=== PATIENT | female | born 1945 | race Caucasian/White ===

== ENCOUNTER 2018-02-13 10:27 | Emergency (ER) | payer OTHER ==
[~2018-02-13] VITALS: Ht 149.9 cm; Wt 59.0 kg
[2018-02-13 11:30] VITALS: BP 145/89
[2018-02-13] MEDS ORDERED: KETOROLAC TROMETH 60MG/2ML VIAL IM ONE (11:45)
== END 2018-02-13 12:49 | disposition left against medical advice (07) ==
LOC: ER 10:27
DX: S20.212A Contusion of left front wall of thorax, initial encounter (principal); M25.551 Pain in right hip; E11.9 Type 2 diabetes mellitus without complications; I10 Essential (primary) hypertension; Z95.0 Presence of cardiac pacemaker; X58.XXXA Exposure to other specified factors, initial encounter; Y93.89 Activity, other specified; Y92.89 Other specified places as the place of occurrence of the external cause; Y99.8 Other external cause status
CPT/HCPCS: 71101; 73502; 96372; 99284; J1885

== ENCOUNTER 2021-09-22 14:57 | Inpatient (IN) | payer OTHER ==
[~2021-09-22] VITALS: Ht 147.3 cm; Wt 58.6 kg
[2021-09-22] MEDS ORDERED: SODIUM CHLORIDE 0.9% 1,000 ML IV ONE (16:00)
[2021-09-22] MEDS ORDERED: ASPirin 81 mg TAB PO ONE (16:00)
[2021-09-22 16:41] LABS: Basophils # (auto) 0 10 ^3/uL (0-0.2); Eosinophils # (auto) 0 10 ^3/uL (0-0.8); Hematocrit 37.8 % (36.0-46.0); Hemoglobin 12.5 g/dL (12.2-16.2); Mean Corpuscular Volume 106.9 fL (80.0-100.0); Monocytes # (auto) 0.3 10 ^3/uL (0-1.3); Monocytes % (auto) 4.8 % (0.0-12.0); Neutrophils # (auto) 4.9 10 ^3/uL (1.6-8.6); Red Blood Cells 3.53 10^6/uL (4.0-5.20); White Blood Cell 5.7 10^3/uL (4.4-10.8)
[2021-09-22 16:44] LABS: Basophils % (auto) 0.4 % (0.0-2.0); Lymphocytes # (auto) 0.6 10 ^3/uL (0.4-5.4); Lymphocytes % (auto) 9.7 % (10.0-50.0); Mean Corpuscular Hemoglobin 35.3 pg (28.0-32.0); Neutrophils % (auto) 85.1 % (37.0-80.0); Nucleated Red Blood Cells % 0.6 %
[2021-09-22 17:01] LABS: INR 0.95 (0.9-1.15); Partial Thromboplastin Time 21.1 sec (23.6-33.0)
[2021-09-22] MEDS ORDERED: DexAMETHasone SOD PHOS 10MG/1ML VIAL INJ IV ONE (17:15)
[2021-09-22] MEDS ORDERED: cefTRIAXone 1GM/50ML D5W 50 ML IV ONE (17:15)
[2021-09-22] MEDS ORDERED: AZITHROMYCIN 500MG/ 250ML 250 ML IV ONE (17:15)
[2021-09-22] MEDS ORDERED: CHOLECALCIFEROL (VITD3) 2,000 UNIT CAP/TAB PO ONE (17:15)
[2021-09-22] MEDS ORDERED: ASCORBIC ACID 500 MG TAB PO ONE (17:15)
[2021-09-22] MEDS ORDERED: ZINC SULFATE 220mg CAP or TAB PO ONE (17:15)
[2021-09-22 17:17] LABS: Albumin 2.6 g/dL (3.4-5.0); Calcium 8.7 mg/dL (8.5-10.1); Magnesium 3.1 mg/dL (1.6-2.6); Potassium 3.8 mmol/L (3.5-5.1)
[2021-09-22 17:25] LABS: BUN/Creatinine Ratio 33.9; Bilirubin, Total 0.2 mg/dL (0.2-1.0); Total Protein 7.4 g/dL (6.4-8.2)
[2021-09-22] MEDS ORDERED: NITROGLYCERIN 0.4 MG SL TAB SL PRN ×2 (19:30→20:00)
[2021-09-22] MEDS ORDERED: MORPHINE SULFATE INJECTION 2 MG/ML SYRG IV PRN ×2 (19:30→20:00)
[2021-09-22] MEDS ORDERED: FAMOTIDINE (10MG/ML) 2ML VL IV ONE (19:45)
[2021-09-22] MEDS ORDERED: REMDESIVIR PER PHARMACY 0 ML IV SCH (19:45)
[2021-09-22] MEDS ORDERED: ACETAMINOPHEN 500 MG TAB PO PRN (19:45)
[2021-09-22] MEDS ORDERED: DOCUSATE SOD 100 MG CAP PO PRN (20:00)
[2021-09-22] MEDS ORDERED: DEXTROSE (50%) 50ML SYRG IV PRN (20:00)
[2021-09-22] MEDS ORDERED: METOPROLOL SUCCINATE XL 50 MG TAB PO ONE (20:15)
[2021-09-22] MEDS ORDERED: ALBUMIN 25% 100 ML IV ONE (20:15)
[2021-09-22] MEDS: BUDESONIDE (INHALATION) 180 MCG IH IN SCH (20:49)
[2021-09-22] MEDS: ALBUTEROL SULF HFA 90MCG INH 200DOSE IN PRN (20:49)
[2021-09-22] MEDS ORDERED: REMDESIVIR 200 MG in NS 210ml LOADING DOSE ADULT IV ONE (21:00)
[2021-09-22] MEDS: ATORVASTATIN 20 MG TAB PO SCH (21:52)
[2021-09-22] MEDS: POTASSIUM CHL 20 Meq TABLET PO SCH (21:52)
[2021-09-22] MEDS: InsuLIN REG 1unit/0.01ml Soln (100units/ml) SC SCH (21:52)
[2021-09-22] MEDS: ACCU-CHEK COMFORT CURVE STRIP VI SCH (21:52)
[2021-09-22] MEDS ORDERED: ENOXAPARIN SOD 40 MG/0.4 ML SYRINGE SC SCH (22:00)
[2021-09-23] VITALS (7 sets, daily range): BP systolic 134–158; BP diastolic 49–92
[2021-09-23] MEDS: DOXYCYCLINE 100MG/250ML 250 ML IV SCH ×2 (01:00→11:02)
[2021-09-23] MEDS ORDERED: LISI20TA28 PO (02:28)
[2021-09-23] MEDS ORDERED: MORP15TA PO (02:28)
[2021-09-23] MEDS ORDERED: METO25TA5 PO (02:28)
[2021-09-23] MEDS: MORPHINE SULFATE INJECTION 2 MG/ML SYRG IV PRN ×4 (02:51→20:10)
[2021-09-23] MEDS ORDERED: ALBUMIN 25% 100 ML IV SCH (04:00)
[2021-09-23] MEDS: FUROSEMIDE 20 MG/2 ML VIAL IV SCH ×2 (05:34→18:44)
[2021-09-23] MEDS: InsuLIN REG 1unit/0.01ml Soln (100units/ml) SC SCH ×2 (06:26→11:30)
[2021-09-23] MEDS: ACCU-CHEK COMFORT CURVE STRIP VI SCH ×2 (06:26→11:50)
[2021-09-23] MEDS: BUDESONIDE (INHALATION) 180 MCG IH IN SCH ×2 (09:13→22:12)
[2021-09-23] MEDS: ALBUTEROL SULF HFA 90MCG INH 200DOSE IN PRN ×2 (09:13→22:14)
[2021-09-23] MEDS ORDERED: OPTISON 3ml Vial for INJ IV ONE (10:10)
[2021-09-23] MEDS: DexAMETHasone SOD PHOS 10MG/1ML VIAL INJ IV SCH (11:01)
[2021-09-23] MEDS: ASPirin 81 mg TAB PO SCH (11:02)
[2021-09-23] MEDS: POTASSIUM CHL 20 Meq TABLET PO SCH ×2 (11:03→21:12)
[2021-09-23] MEDS: IVERMECTIN 3 MG TAB PO SCH (11:03)
[2021-09-23] MEDS: ASCORBIC ACID 1,000 MG TAB PO SCH (11:03)
[2021-09-23] MEDS: CHOLECALCIFEROL (VITD3) 2,000 UNIT CAP/TAB PO SCH (11:03)
[2021-09-23] MEDS: LORazepam 0.5 MG TAB PO PRN ×2 (11:04→21:14)
[2021-09-23] MEDS: HYDROcodone-ACET 5/325MG TAB PO PRN (11:05)
[2021-09-23 12:10] LABS: INR 0.97 (0.9-1.15); Potassium 3.9 mmol/L (3.5-5.1)
[2021-09-23 12:13] LABS: Basophils # (auto) 0 10 ^3/uL (0-0.2); Basophils % (auto) 0.1 % (0.0-2.0); Eosinophils # (auto) 0 10 ^3/uL (0-0.8); Hemoglobin 11.8 g/dL (12.2-16.2); Lymphocytes # (auto) 0.7 10 ^3/uL (0.4-5.4); Monocytes # (auto) 0.3 10 ^3/uL (0-1.3)
[2021-09-23 12:15] LABS: Hematocrit 35.2 % (36.0-46.0); Lymphocytes % (auto) 10.6 % (10.0-50.0); Mean Corpuscular Hemoglobin 35.7 pg (28.0-32.0); Mean Corpuscular Hgb Conc. 33.6 g/dL (32.0-36.0); Mean Corpuscular Volume 106.2 fL (80.0-100.0); Monocytes % (auto) 4.6 % (0.0-12.0); Neutrophils # (auto) 5.8 10 ^3/uL (1.6-8.6); Neutrophils % (auto) 84.7 % (37.0-80.0); Nucleated Red Blood Cells % 0.4 %; Red Blood Cells 3.31 10^6/uL (4.0-5.20); White Blood Cell 6.8 10^3/uL (4.4-10.8)
[2021-09-23 12:27] LABS: Albumin 3.5 g/dL (3.4-5.0); BUN/Creatinine Ratio 31.4; Bilirubin, Total 0.4 mg/dL (0.2-1.0); Calcium 9.1 mg/dL (8.5-10.1); Magnesium 2.3 mg/dL (1.6-2.6); Phosphorus 2.1 mg/dL (2.5-4.90); Total Protein 7.8 g/dL (6.4-8.2); Uric Acid 6.8 mg/dL (2.6-6.0)
[2021-09-23] MEDS ORDERED: REMDESIVIR 100mg 100 MG in SODIUM CHL 0.9% 230 ML IV SCH (15:00)
[2021-09-23] MEDS: ENOXAPARIN SOD 40 MG/0.4 ML SYRINGE SC SCH (21:12)
[2021-09-23] MEDS: ATORVASTATIN 20 MG TAB PO SCH (21:12)
[2021-09-23] MEDS: DOXYCYCLINE 100 MG TAB/CAP PO SCH (21:12)
[2021-09-23] MEDS: METOPROLOL SUCCINATE XL 50 MG TAB PO SCH (21:13)
[2021-09-23] MEDS ORDERED: FAMOTIDINE (10MG/ML) 2ML VL IV SCH (22:00)
[2021-09-24] MEDS: HYDROcodone-ACET 5/325MG TAB PO PRN ×2 (00:31→10:46)
[2021-09-24] MEDS: MORPHINE SULFATE INJECTION 2 MG/ML SYRG IV PRN ×2 (01:38→22:49)
[2021-09-24 04:36] VITALS: BP 115/58
[2021-09-24] MEDS: BUDESONIDE (INHALATION) 180 MCG IH IN SCH ×2 (05:58→22:10)
[2021-09-24] MEDS: ALBUTEROL SULF HFA 90MCG INH 200DOSE IN PRN ×2 (05:58→23:27)
[2021-09-24] MEDS: FUROSEMIDE 20 MG/2 ML VIAL IV SCH ×2 (06:50→18:00)
[2021-09-24 09:00] VITALS: BP 153/58
[2021-09-24] MEDS: DexAMETHasone SOD PHOS 10MG/1ML VIAL INJ IV SCH (10:44)
[2021-09-24] MEDS: LORazepam 0.5 MG TAB PO PRN (10:44)
[2021-09-24] MEDS: ENOXAPARIN SOD 40 MG/0.4 ML SYRINGE SC SCH ×2 (10:44→22:33)
[2021-09-24] MEDS: ASPirin 81 mg TAB PO SCH (10:44)
[2021-09-24] MEDS: ASCORBIC ACID 1,000 MG TAB PO SCH (10:45)
[2021-09-24] MEDS: DOXYCYCLINE 100 MG TAB/CAP PO SCH ×2 (10:45→22:32)
[2021-09-24] MEDS: IVERMECTIN 3 MG TAB PO SCH (10:45)
[2021-09-24] MEDS: POTASSIUM CHL 20 Meq TABLET PO SCH ×2 (10:45→22:31)
[2021-09-24] MEDS: CHOLECALCIFEROL (VITD3) 2,000 UNIT CAP/TAB PO SCH (10:45)
[2021-09-24 11:46] LABS: Urine Bacteria NONE SEEN /hpf (None Seen); Urine Blood Negative /uL (Negative); Urine Specific Gravity 1.017 (1.001-1.035); Urine WBC 6 /hpf (0 - 5)
[2021-09-24 12:23] LABS: Alcohol, Urine < 3.0 mg/dL (0-10); Barbiturate Scree,Urine NEGATIVE (NEGATIVE); Benzodiazephine Screen, Urine NEGATIVE (NEGATIVE); Cannabinoid Screen, Urine NEGATIVE (NEGATIVE)
[2021-09-24 12:33] LABS: Amphetamine Screen, Urine NEGATIVE (NEGATIVE); Cocaine Screen, Urine NEGATIVE (NEGATIVE); Opiate Scree,Urine POSITIVE (NEGATIVE); Phencyclidine Screen, Urine NEGATIVE (NEGATIVE)
[2021-09-24 13:00] VITALS: BP 152/65
[2021-09-24 17:00] VITALS: BP 148/67
[2021-09-24 22:00] VITALS: BP 138/66
[2021-09-24] MEDS: ATORVASTATIN 20 MG TAB PO SCH (22:32)
[2021-09-24] MEDS: METOPROLOL SUCCINATE XL 50 MG TAB PO SCH (22:32)
[2021-09-25] MEDS: MORPHINE SULFATE INJECTION 2 MG/ML SYRG IV PRN ×4 (04:16→20:55)
[2021-09-25 05:00] VITALS: BP 162/73
[2021-09-25] MEDS: ALBUTEROL SULF HFA 90MCG INH 200DOSE IN PRN ×2 (06:14→19:55)
[2021-09-25] MEDS: BUDESONIDE (INHALATION) 180 MCG IH IN SCH ×2 (06:14→19:13)
[2021-09-25 06:26] LABS: Mean Corpuscular Volume 106.6 fL (80.0-100.0)
[2021-09-25 06:28] LABS: Potassium 4.6 mmol/L (3.5-5.1)
[2021-09-25 06:29] LABS: Hematocrit 36.2 % (36.0-46.0); Hemoglobin 12.1 g/dL (12.2-16.2); Mean Corpuscular Hemoglobin 35.6 pg (28.0-32.0); Mean Corpuscular Hgb Conc. 33.4 g/dL (32.0-36.0); Red Blood Cells 3.39 10^6/uL (4.0-5.20); White Blood Cell 6.6 10^3/uL (4.4-10.8)
[2021-09-25 06:48] LABS: Basophils % (manual) 0 (0.0-2.0); Blast Cells 0; Eosinophils % (manual) 0 (0-7); Promyelocytes % 0; Reactive Lymphocytes 0
[2021-09-25 06:58] LABS: BUN/Creatinine Ratio 55.4; CRP High Sensitivity 1.53 mg/dL (< 0.3); Calcium 9.6 mg/dL (8.5-10.1)
[2021-09-25] MEDS: HYDROcodone-ACET 5/325MG TAB PO PRN ×3 (08:09→22:47)
[2021-09-25 09:22] VITALS: BP 168/66
[2021-09-25] MEDS: hydrALAZINE HCL 20 MG/ML VL IV PRN ×2 (09:53→20:55)
[2021-09-25] MEDS: IVERMECTIN 3 MG TAB PO SCH (09:53)
[2021-09-25] MEDS: ENOXAPARIN SOD 40 MG/0.4 ML SYRINGE SC SCH ×2 (09:53→20:54)
[2021-09-25] MEDS: DexAMETHasone SOD PHOS 10MG/1ML VIAL INJ IV SCH (09:53)
[2021-09-25] MEDS: ASPirin 81 mg TAB PO SCH (09:54)
[2021-09-25] MEDS: DOXYCYCLINE 100 MG TAB/CAP PO SCH ×2 (09:54→20:54)
[2021-09-25] MEDS: POTASSIUM CHL 20 Meq TABLET PO SCH (09:54)
[2021-09-25] MEDS: ASCORBIC ACID 1,000 MG TAB PO SCH (09:54)
[2021-09-25] MEDS: CHOLECALCIFEROL (VITD3) 2,000 UNIT CAP/TAB PO SCH (09:54)
[2021-09-25 11:34] LABS: Band Neutrophils % (manual) 4; Lymphocytes % (manual) 5 (10.0-50.0); Metamyelocytes % 1; Monocytes % (manual) 7 (0-12); Myelocytes % 1
[2021-09-25 13:00] VITALS: BP 143/61
[2021-09-25 17:27] VITALS: BP 133/46
[2021-09-25 20:30] VITALS: BP 133/46
[2021-09-25] MEDS: METOPROLOL SUCCINATE XL 50 MG TAB PO SCH (20:54)
[2021-09-25] MEDS: ONDANSETRON HCL 4 MG/2 ML VIAL IV PRN (21:52)
[2021-09-25 22:00] VITALS: BP 164/76
[2021-09-25] MEDS: LORazepam 0.5 MG TAB PO PRN (22:04)
[2021-09-25] MEDS ORDERED: LISINOPRIL 20 MG TAB PO ONE (23:15)
[2021-09-26 05:00] VITALS: BP 150/67
[2021-09-26] MEDS: BUDESONIDE (INHALATION) 180 MCG IH IN SCH ×2 (06:01→18:20)
[2021-09-26] MEDS: ALBUTEROL SULF HFA 90MCG INH 200DOSE IN PRN ×2 (06:01→18:20)
[2021-09-26 06:20] LABS: Mean Corpuscular Hemoglobin 35.2 pg (28.0-32.0)
[2021-09-26 06:22] LABS: Hematocrit 37.9 % (36.0-46.0); Hemoglobin 12.6 g/dL (12.2-16.2); Mean Corpuscular Hgb Conc. 33.2 g/dL (32.0-36.0); Mean Corpuscular Volume 106.3 fL (80.0-100.0); Red Blood Cells 3.56 10^6/uL (4.0-5.20)
[2021-09-26 06:28] LABS: Basophils % (manual) 0 (0.0-2.0); Blast Cells 0; Eosinophils % (manual) 0 (0-7); Metamyelocytes % 0; Myelocytes % 0; Promyelocytes % 0; Reactive Lymphocytes 0
[2021-09-26 06:41] LABS: Albumin 3.2 g/dL (3.4-5.0); Potassium 3.5 mmol/L (3.5-5.1)
[2021-09-26 06:46] LABS: BUN/Creatinine Ratio 57.1; Bilirubin, Total 0.8 mg/dL (0.2-1.0); Total Protein 6.9 g/dL (6.4-8.2)
[2021-09-26 08:57] VITALS: BP 136/56
[2021-09-26] MEDS: DexAMETHasone SOD PHOS 10MG/1ML VIAL INJ IV SCH (09:47)
[2021-09-26] MEDS: CHOLECALCIFEROL (VITD3) 2,000 UNIT CAP/TAB PO SCH (09:48)
[2021-09-26] MEDS: ASPirin 81 mg TAB PO SCH (09:48)
[2021-09-26] MEDS: IVERMECTIN 3 MG TAB PO SCH (09:48)
[2021-09-26] MEDS: DOXYCYCLINE 100 MG TAB/CAP PO SCH ×2 (09:48→22:51)
[2021-09-26] MEDS: ASCORBIC ACID 1,000 MG TAB PO SCH (09:48)
[2021-09-26] MEDS: ENOXAPARIN SOD 40 MG/0.4 ML SYRINGE SC SCH ×2 (09:49→22:51)
[2021-09-26] MEDS: LISINOPRIL 20 MG TAB PO SCH (10:00)
[2021-09-26 11:22] LABS: BUN/Creatinine Ratio 57.1; Potassium 4.8 mmol/L (3.5-5.1)
[2021-09-26 12:03] LABS: Band Neutrophils % (manual) 3; Lymphocytes % (manual) 8 (10.0-50.0); Monocytes % (manual) 2 (0-12)
[2021-09-26 13:00] VITALS: BP 143/54
[2021-09-26 17:12] VITALS: BP 149/69
[2021-09-26] MEDS: Ensure HIGH Protein Chocolate 8oz Bottle PO SCH (18:00)
[2021-09-26] MEDS: MORPHINE SULFATE INJECTION 2 MG/ML SYRG IV PRN ×2 (18:44→22:52)
[2021-09-26 22:00] VITALS: BP 157/69
[2021-09-26] MEDS: METOPROLOL SUCCINATE XL 50 MG TAB PO SCH (22:52)
[2021-09-27] MEDS: MORPHINE SULFATE INJECTION 2 MG/ML SYRG IV PRN ×4 (03:00→22:27)
[2021-09-27 05:24] VITALS: BP 143/53
[2021-09-27] MEDS: BUDESONIDE (INHALATION) 180 MCG IH IN SCH ×2 (05:45→21:46)
[2021-09-27] MEDS: ALBUTEROL SULF HFA 90MCG INH 200DOSE IN PRN ×2 (05:45→22:53)
[2021-09-27] MEDS: Ensure HIGH Protein Chocolate 8oz Bottle PO SCH ×3 (08:00→18:18)
[2021-09-27] MEDS: LISINOPRIL 20 MG TAB PO SCH (10:00)
[2021-09-27] MEDS: DexAMETHasone SOD PHOS 10MG/1ML VIAL INJ IV SCH (10:37)
[2021-09-27] MEDS: IVERMECTIN 3 MG TAB PO SCH (10:38)
[2021-09-27] MEDS: DOXYCYCLINE 100 MG TAB/CAP PO SCH (10:38)
[2021-09-27] MEDS: ASPirin 81 mg TAB PO SCH (10:38)
[2021-09-27] MEDS: ASCORBIC ACID 1,000 MG TAB PO SCH (10:39)
[2021-09-27] MEDS: CHOLECALCIFEROL (VITD3) 2,000 UNIT CAP/TAB PO SCH (10:39)
[2021-09-27] MEDS: ENOXAPARIN SOD 40 MG/0.4 ML SYRINGE SC SCH ×2 (10:40→21:24)
[2021-09-27 13:00] VITALS: BP 156/74
[2021-09-27 17:00] VITALS: BP 150/71
[2021-09-27] MEDS: MORPHINE SULF 15mg ER tab PO SCH (21:23)
[2021-09-27] MEDS: METOPROLOL SUCCINATE XL 50 MG TAB PO SCH (21:27)
[2021-09-27 22:00] VITALS: BP 138/62
[2021-09-28] VITALS (7 sets, daily range): BP systolic 112–147; BP diastolic 53–64
[2021-09-28] MEDS: MORPHINE SULFATE INJECTION 2 MG/ML SYRG IV PRN (05:08)
[2021-09-28] MEDS: Ensure HIGH Protein Chocolate 8oz Bottle PO SCH ×3 (07:54→17:34)
[2021-09-28] MEDS: BUDESONIDE (INHALATION) 180 MCG IH IN SCH ×2 (08:37→21:53)
[2021-09-28] MEDS: ALBUTEROL SULF HFA 90MCG INH 200DOSE IN PRN (08:37)
[2021-09-28] MEDS: ASCORBIC ACID 1,000 MG TAB PO SCH (11:09)
[2021-09-28] MEDS: ASPirin 81 mg TAB PO SCH (11:09)
[2021-09-28] MEDS: DexAMETHasone SOD PHOS 10MG/1ML VIAL INJ IV SCH (11:09)
[2021-09-28] MEDS: LISINOPRIL 20 MG TAB PO SCH (11:10)
[2021-09-28] MEDS: CHOLECALCIFEROL (VITD3) 2,000 UNIT CAP/TAB PO SCH (11:10)
[2021-09-28] MEDS: MORPHINE SULF 15mg ER tab PO SCH ×2 (11:10→22:10)
[2021-09-28] MEDS: ENOXAPARIN SOD 40 MG/0.4 ML SYRINGE SC SCH ×2 (11:11→22:11)
[2021-09-28] MEDS: METOPROLOL SUCCINATE XL 50 MG TAB PO SCH (22:11)
[2021-09-29 05:00] VITALS: BP 103/51
[2021-09-29 07:21] LABS: Hematocrit 34.8 % (36.0-46.0); Hemoglobin 11.4 g/dL (12.2-16.2); Mean Corpuscular Hemoglobin 34.8 pg (28.0-32.0); Mean Corpuscular Hgb Conc. 32.7 g/dL (32.0-36.0); Mean Corpuscular Volume 106.3 fL (80.0-100.0); Red Blood Cells 3.27 10^6/uL (4.0-5.20); White Blood Cell 14.1 10^3/uL (4.4-10.8)
[2021-09-29 07:25] LABS: Basophils % (manual) 0 (0.0-2.0); Blast Cells 0; Eosinophils % (manual) 0 (0-7); Promyelocytes % 0; Reactive Lymphocytes 0
[2021-09-29 07:39] LABS: Potassium 4.6 mmol/L (3.5-5.1)
[2021-09-29] MEDS: Ensure HIGH Protein Chocolate 8oz Bottle PO SCH ×3 (07:44→18:13)
[2021-09-29 07:54] LABS: BUN/Creatinine Ratio 84.1; Calcium 10.3 mg/dL (8.5-10.1); Magnesium 3.6 mg/dL (1.6-2.6)
[2021-09-29 08:45] LABS: Band Neutrophils % (manual) 16; Lymphocytes % (manual) 6 (10.0-50.0); Metamyelocytes % 2; Monocytes % (manual) 3 (0-12); Myelocytes % 1
[2021-09-29 09:00] VITALS: BP 111/54
[2021-09-29] MEDS: ASPirin 81 mg TAB PO SCH (10:20)
[2021-09-29] MEDS: ASCORBIC ACID 1,000 MG TAB PO SCH (10:20)
[2021-09-29] MEDS: CHOLECALCIFEROL (VITD3) 2,000 UNIT CAP/TAB PO SCH (10:20)
[2021-09-29] MEDS: DexAMETHasone SOD PHOS 10MG/1ML VIAL INJ IV SCH (10:20)
[2021-09-29] MEDS: LISINOPRIL 20 MG TAB PO SCH (10:22)
[2021-09-29] MEDS: ENOXAPARIN SOD 40 MG/0.4 ML SYRINGE SC SCH ×2 (10:22→22:09)
[2021-09-29] MEDS: MORPHINE SULF 15mg ER tab PO SCH ×2 (10:23→22:10)
[2021-09-29 13:00] VITALS: BP 113/51
[2021-09-29 14:03] LABS: White Blood Cell 16.2 10^3/uL (4.4-10.8)
[2021-09-29 14:05] LABS: Hematocrit 37.2 % (36.0-46.0); Hemoglobin 12.2 g/dL (12.2-16.2); Mean Corpuscular Hemoglobin 35.3 pg (28.0-32.0); Mean Corpuscular Hgb Conc. 32.7 g/dL (32.0-36.0); Mean Corpuscular Volume 107.9 fL (80.0-100.0); Red Blood Cells 3.45 10^6/uL (4.0-5.20); Red Cell Distribution Width 16.2 % (11.8-14.3)
[2021-09-29 14:09] LABS: Basophils % (manual) 0 (0.0-2.0); Blast Cells 0; Eosinophils % (manual) 0 (0-7); Myelocytes % 0; Promyelocytes % 0; Reactive Lymphocytes 0
[2021-09-29 14:27] LABS: Calcium 10.5 mg/dL (8.5-10.1); Magnesium 3.4 mg/dL (1.6-2.6); Potassium 4.9 mmol/L (3.5-5.1)
[2021-09-29 14:35] LABS: CRP High Sensitivity 3.62 mg/dL (< 0.3)
[2021-09-29 14:53] LABS: Band Neutrophils % (manual) 8; Lymphocytes % (manual) 6 (10.0-50.0); Metamyelocytes % 1; Monocytes % (manual) 3 (0-12)
[2021-09-29] MEDS: BUDESONIDE (INHALATION) 180 MCG IH IN SCH ×2 (15:24→19:30)
[2021-09-29] MEDS: ALBUTEROL SULF HFA 90MCG INH 200DOSE IN PRN ×2 (15:24→20:59)
[2021-09-29 16:44] VITALS: BP 115/49
[2021-09-29 20:00] VITALS: BP 124/59
[2021-09-29 22:00] VITALS: BP 121/51
[2021-09-29] MEDS: METOPROLOL SUCCINATE XL 50 MG TAB PO SCH (22:09)
[2021-09-30 05:00] VITALS: BP 111/51
[2021-09-30] MEDS: Ensure HIGH Protein Chocolate 8oz Bottle PO SCH ×3 (07:34→18:42)
[2021-09-30 08:00] VITALS: BP 109/49
[2021-09-30 08:30] VITALS: BP 109/49
[2021-09-30] MEDS: DexAMETHasone SOD PHOS 10MG/1ML VIAL INJ IV SCH (09:22)
[2021-09-30] MEDS: MORPHINE SULF 15mg ER tab PO SCH ×2 (09:22→22:28)
[2021-09-30] MEDS: ASPirin 81 mg TAB PO SCH (09:22)
[2021-09-30] MEDS: ENOXAPARIN SOD 40 MG/0.4 ML SYRINGE SC SCH ×2 (09:23→22:29)
[2021-09-30] MEDS: IVERMECTIN 3 MG TAB PO SCH (09:23)
[2021-09-30] MEDS: CHOLECALCIFEROL (VITD3) 2,000 UNIT CAP/TAB PO SCH (09:23)
[2021-09-30] MEDS: LISINOPRIL 20 MG TAB PO SCH (09:23)
[2021-09-30] MEDS: ASCORBIC ACID 1,000 MG TAB PO SCH (09:23)
[2021-09-30] MEDS ORDERED: POLYETHYLENE GLYCOL 17 GM PWDR PO ONE (10:45)
[2021-09-30 12:50] VITALS: BP 104/38
[2021-09-30 16:33] VITALS: BP 109/50
[2021-09-30] MEDS: BUDESONIDE (INHALATION) 180 MCG IH IN SCH (18:58)
[2021-09-30] MEDS: ALBUTEROL SULF HFA 90MCG INH 200DOSE IN PRN (19:10)
[2021-09-30 22:00] VITALS: BP 115/50
[2021-09-30] MEDS: METOPROLOL SUCCINATE XL 50 MG TAB PO SCH (22:29)
[2021-10-01] VITALS (7 sets, daily range): BP systolic 108–139; BP diastolic 38–57
[2021-10-01] MEDS: Ensure HIGH Protein Chocolate 8oz Bottle PO SCH ×3 (08:00→18:00)
[2021-10-01] MEDS: DexAMETHasone SOD PHOS 10MG/1ML VIAL INJ IV SCH (09:22)
[2021-10-01] MEDS: ENOXAPARIN SOD 40 MG/0.4 ML SYRINGE SC SCH ×2 (09:22→21:49)
[2021-10-01] MEDS: MORPHINE SULF 15mg ER tab PO SCH ×2 (09:23→21:48)
[2021-10-01] MEDS: IVERMECTIN 3 MG TAB PO SCH (10:00)
[2021-10-01] MEDS: POLYETHYLENE GLYCOL 17 GM PWDR PO SCH (10:00)
[2021-10-01] MEDS: LISINOPRIL 20 MG TAB PO SCH (10:00)
[2021-10-01] MEDS: CHOLECALCIFEROL (VITD3) 2,000 UNIT CAP/TAB PO SCH (10:00)
[2021-10-01] MEDS: ASCORBIC ACID 1,000 MG TAB PO SCH (10:00)
[2021-10-01] MEDS: ASPirin 81 mg TAB PO SCH (10:00)
[2021-10-01] MEDS: ALBUTEROL SULF HFA 90MCG INH 200DOSE IN PRN ×2 (10:58→20:03)
[2021-10-01] MEDS: BUDESONIDE (INHALATION) 180 MCG IH IN SCH ×2 (10:58→18:40)
[2021-10-01] MEDS ORDERED: FUROSEMIDE 40 MG/4 ML VIAL IV SCH (13:00)
[2021-10-01] MEDS ORDERED: FLEET ENEMA(ADULT) 135 ML PR ONE (13:45)
[2021-10-01] MEDS: MORPHINE SULFATE INJECTION 2 MG/ML SYRG IV PRN (16:57)
[2021-10-01] MEDS: METOPROLOL SUCCINATE XL 50 MG TAB PO SCH (22:00)
[2021-10-02] VITALS (10 sets, daily range): BP systolic 103–129; BP diastolic 40–53
[2021-10-02] MEDS: LORazepam 0.5 MG TAB PO PRN ×2 (06:17→16:48)
[2021-10-02 06:55] LABS: Hematocrit 35.4 % (36.0-46.0); Hemoglobin 11.4 g/dL (12.2-16.2); Mean Corpuscular Hemoglobin 34.5 pg (28.0-32.0); Mean Corpuscular Hgb Conc. 32.2 g/dL (32.0-36.0); Mean Corpuscular Volume 107.3 fL (80.0-100.0); Red Cell Distribution Width 15.8 % (11.8-14.3); White Blood Cell 15.3 10^3/uL (4.4-10.8)
[2021-10-02 06:57] LABS: Basophils % (manual) 0 (0.0-2.0); Blast Cells 0; Promyelocytes % 0; Reactive Lymphocytes 0
[2021-10-02 07:00] LABS: BUN/Creatinine Ratio 56.9; Calcium 10.5 mg/dL (8.5-10.1); Magnesium 3.5 mg/dL (1.6-2.6); Potassium 4.8 mmol/L (3.5-5.1)
[2021-10-02] MEDS: MORPHINE SULFATE INJECTION 2 MG/ML SYRG IV PRN ×2 (07:44→22:03)
[2021-10-02] MEDS: ONDANSETRON HCL 4 MG/2 ML VIAL IV PRN (07:45)
[2021-10-02] MEDS: Ensure HIGH Protein Chocolate 8oz Bottle PO SCH ×3 (08:00→18:00)
[2021-10-02] MEDS: ASPirin 81 mg TAB PO SCH (10:00)
[2021-10-02] MEDS: BUDESONIDE (INHALATION) 180 MCG IH IN SCH (10:00)
[2021-10-02] MEDS: ASCORBIC ACID 1,000 MG TAB PO SCH (10:00)
[2021-10-02] MEDS: ENOXAPARIN SOD 40 MG/0.4 ML SYRINGE SC SCH ×2 (10:00→22:01)
[2021-10-02] MEDS: MORPHINE SULF 15mg ER tab PO SCH ×2 (10:00→22:00)
[2021-10-02] MEDS: IVERMECTIN 3 MG TAB PO SCH (10:00)
[2021-10-02] MEDS: CHOLECALCIFEROL (VITD3) 2,000 UNIT CAP/TAB PO SCH (10:00)
[2021-10-02] MEDS: POLYETHYLENE GLYCOL 17 GM PWDR PO SCH (10:00)
[2021-10-02 10:10] LABS: Band Neutrophils % (manual) 7; Eosinophils % (manual) 1 (0-7); Lymphocytes % (manual) 3 (10.0-50.0); Metamyelocytes % 1; Monocytes % (manual) 2 (0-12); Myelocytes % 1
[2021-10-02] MEDS: DexAMETHasone SOD PHOS 10MG/1ML VIAL INJ IV SCH (12:02)
[2021-10-02] MEDS: D5W/SOD CHLO 0.9% 1,000 ML IV SCH (15:45)
[2021-10-02] MEDS ORDERED: CLINIMIX PER PHARMACY 0 ML IV SCH (16:45)
[2021-10-02] MEDS: DOXYCYCLINE 100MG/250ML 250 ML IV SCH (18:00)
[2021-10-02] MEDS: AMINO ACID INFUSION IN D10W 1,000 ML IV NR ×2 (20:00→20:12)
[2021-10-02] MEDS: METOPROLOL SUCCINATE XL 50 MG TAB PO SCH (22:00)
[2021-10-02] MEDS: BUDESONIDE (INHALATION) 0.5 MG/2 ML NEB NEB SCH (22:07)
[2021-10-02] MEDS: ALBUTEROL SULF 2.5 MG/0.5ML(0.5%) NEB SOLN NEB PRN (22:07)
[2021-10-03] VITALS (7 sets, daily range): BP systolic 121–170; BP diastolic 54–65
[2021-10-03] MEDS ORDERED: DEXTROSE (50%) 50ML SYRG IV SCH
[2021-10-03] MEDS: InsuLIN REG 1unit/0.01ml Soln (100units/ml) SC SCH ×4 (00:38→18:00)
[2021-10-03] MEDS: MORPHINE SULFATE INJECTION 2 MG/ML SYRG IV PRN ×4 (04:33→14:33)
[2021-10-03] MEDS: ACCU-CHEK COMFORT CURVE STRIP VI SCH ×4 (05:32→18:00)
[2021-10-03] MEDS: D5W/SOD CHLO 0.9% 1,000 ML IV SCH ×2 (05:32→18:25)
[2021-10-03] MEDS: DOXYCYCLINE 100MG/250ML 250 ML IV SCH ×2 (05:37→18:00)
[2021-10-03] MEDS: BUDESONIDE (INHALATION) 0.5 MG/2 ML NEB NEB SCH (07:01)
[2021-10-03] MEDS: ALBUTEROL SULF 2.5 MG/0.5ML(0.5%) NEB SOLN NEB PRN (07:01)
[2021-10-03 07:40] LABS: Albumin 2.1 g/dL (3.4-5.0); Magnesium 2.8 mg/dL (1.6-2.6); Potassium 4.2 mmol/L (3.5-5.1)
[2021-10-03 07:46] LABS: BUN/Creatinine Ratio 42.3; Bilirubin, Total 0.4 mg/dL (0.2-1.0); Pre Albumin 13.9 mg/dL (20.0-40.0); Total Protein 5.9 g/dL (6.4-8.2)
[2021-10-03] MEDS: Ensure HIGH Protein Chocolate 8oz Bottle PO SCH ×3 (08:00→18:00)
[2021-10-03] MEDS ORDERED: SODIUM PHOSPHATES 24 MEQ in SODIUM CHL 0.9% 100 ML IV ONE (09:30)
[2021-10-03] MEDS ORDERED: SODIUM PHOSPHATES 20 MEQ in SODIUM CHL 0.9% 100 ML IV ONE (09:45)
[2021-10-03] MEDS: IVERMECTIN 3 MG TAB PO SCH (10:00)
[2021-10-03] MEDS: CHOLECALCIFEROL (VITD3) 2,000 UNIT CAP/TAB PO SCH (10:00)
[2021-10-03] MEDS: POLYETHYLENE GLYCOL 17 GM PWDR PO SCH (10:00)
[2021-10-03] MEDS: ASPirin 81 mg TAB PO SCH (10:00)
[2021-10-03] MEDS: ASCORBIC ACID 1,000 MG TAB PO SCH (10:00)
[2021-10-03] MEDS: MORPHINE SULF 15mg ER tab PO SCH (10:00)
[2021-10-03] MEDS: AMINO ACID INFUSION IN D10W 1,000 ML IV NR (10:03)
[2021-10-03] MEDS: DexAMETHasone SOD PHOS 10MG/1ML VIAL INJ IV SCH (10:25)
[2021-10-03] MEDS: ENOXAPARIN SOD 40 MG/0.4 ML SYRINGE SC SCH (10:26)
[2021-10-03] MEDS ORDERED: LORazepam 2MG/ML-1ML VIAL IV PRN ×3 (14:15→18:15)
[2021-10-03] MEDS: hydrALAZINE HCL 20 MG/ML VL IV PRN (14:33)
[2021-10-03] MEDS ORDERED: MORPHINE SULFATE 4 MG/ML SYR/VIAL IV PRN ×3 (16:30→18:45)
[2021-10-03] MEDS ORDERED: MORPHINE SULFATE 4 MG/ML SYR/VIAL IV ONE (18:15)
[2021-10-03] MEDS ORDERED: LORazepam 2MG/ML-1ML VIAL IV ONE (18:15)
[2021-10-03] MEDS ORDERED: AMINO ACID INFUSION IN D10W 1,000 ML IV NR (20:00)
== END 2021-10-03 19:25 | DRG 177 ==
LOC: ER 14:57 → TELE 19:20 → TELE-EAST 21:27 → EAST 21:46 → TELE-E-ADS 21:58
PROVIDERS: ADMIT Hospitalist; ATTEND Internal Medicine
PROC: 05HD33Z Insertion of Infusion Device into Right Cephalic Vein, Percutaneous Approach (ICD-10-PCS; principal; 2021-10-02)
PROC: B54MZZA Ultrasonography of Right Upper Extremity Veins, Guidance (ICD-10-PCS; 2021-10-02)
PROC: 5A0935A Assistance with Respiratory Ventilation, Less than 24 Consecutive Hours, High Flow/Velocity Cannula (ICD-10-PCS; 2021-10-02)
PROC: 5A09457 Assistance with Respiratory Ventilation, 24-96 Consecutive Hours, Continuous Positive Airway Pressure (ICD-10-PCS; 2021-10-02)
DX: U07.1 COVID-19 (principal); J12.82 Pneumonia due to coronavirus disease 2019; J96.01 Acute respiratory failure with hypoxia; N17.9 Acute kidney failure, unspecified; D89.839 Cytokine release syndrome, grade unspecified; N18.31 Chronic kidney disease, stage 3a; E11.40 Type 2 diabetes mellitus with diabetic neuropathy, unspecified; M51.36 Other intervertebral disc degeneration, lumbar region; E11.22 Type 2 diabetes mellitus with diabetic chronic kidney disease; Z66 Do not resuscitate; Z51.5 Encounter for palliative care; E78.5 Hyperlipidemia, unspecified; E88.09 Other disorders of plasma-protein metabolism, not elsewhere classified; G89.29 Other chronic pain; I12.9 Hypertensive chronic kidney disease with stage 1 through stage 4 chronic kidney disease, or unspecified chronic kidney disease; M81.0 Age-related osteoporosis without current pathological fracture; M54.9 Dorsalgia, unspecified; R79.89 Other specified abnormal findings of blood chemistry; D75.89 Other specified diseases of blood and blood-forming organs; E83.52 Hypercalcemia; Z53.29 Procedure and treatment not carried out because of patient's decision for other reasons; Z82.49 Family history of ischemic heart disease and other diseases of the circulatory system; Z91.19 Patient's noncompliance with other medical treatment and regimen; Z95.0 Presence of cardiac pacemaker
CPT/HCPCS: 36415; 36600; 71045; 80048; 80053; 80307; 81001; 82040; 82306; 82728; 82805; 82962; 83036; 83605; 83615; 83735; 83880; 84100; 84443; 84478; 84484; 84550; 85007; 85025; 85027; 85379; 85610; 85730; 86141; 87040; 87426; 93005; 93306; 93970; 94640; 94660; G0378; J0696; J1100; J1815; J2405; J3490; P9047; Q9956